=== PATIENT | male | born 1985 | race Caucasian/White ===

== ENCOUNTER 2021-11-13 17:04 | Outpatient (REF) | payer OTHER, SELFPAY ==
[2021-11-15 11:37] LABS: COVID-19 RT-PCR UVMMC Result Negative (Negative)
== END 2021-11-13 17:05 | disposition home or self-care (01) ==
LOC: LBN 17:04
PROVIDERS: PCP Internal Medicine; Visit Provider Student in an Organized Health Care Education/Training Program
DX: Z20.822 Contact with and (suspected) exposure to COVID-19 (principal)
CPT/HCPCS: U0003

== ENCOUNTER 2024-04-11 19:06 | Emergency (ER) | payer BC, SELFPAY ==
[2024-04-11 19:11] VITALS: BP 168/84; PULSE 89; RESP 16; TEMP 37; O2SAT 99
--- NOTE | 2024-04-11 19:30 | DI.RAD_ITS ---
Exam(s) XR WRIST LT COMPLETE EXAM: XR WRIST LT COMPLETE CLINICAL HISTORY: LEFT WRIST PAIN. TECHNIQUE: 2D digital imaging was performed. COMPARISON: No exams were available for comparison FINDINGS: 3 views No evidence of fracture or dislocation nor significant ulnar variance. Bone density normal. No osse ous lesions. No radiopaque foreign bodies. No degenerative changes. IMPRESSION: No acute osseous findings in the wrist. DATA REPOSITORY: RADIATION DOSE DELIVERED:
--- NOTE | 2024-04-11 21:52 | DI.VRAD_ITS ---
PROCEDURE INFORMATION: Exam: XR Left Wrist Exam date and time: 04/11/2024 8:54 PM Age: 38 years old Clinical indication: Pain; Wrist; Left TECHNIQUE: Imaging protocol: Radiologic exam of the left wrist. Views: 3 or more views. COMPARISON: No relevant prior studies available. FINDINGS: Bones/joints: No acute fracture or subluxation. Soft tissues: Unremarkable. IMPRESSION: No acute bony pathology. Dictated and Authenticated by: Tatiana Lofton MD. Ordering:PEE Piña MD
[2024-04-11 22:05] VITALS: BP 168/84; PULSE 89; RESP 16; TEMP 37; O2SAT 99
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
== END 2024-04-11 22:04 | disposition home or self-care (01) ==
PROVIDERS: Emergency Provider Emergency Medicine; PCP Family Medicine
DX: S60.212A Contusion of left wrist, initial encounter (principal); M25.532 Pain in left wrist; W23.0XXA Caught, crushed, jammed, or pinched between moving objects, initial encounter; V86.59XA Driver of other special all-terrain or other off-road motor vehicle injured in nontraffic accident, initial encounter
CPT/HCPCS: 99283; 73110